=== PATIENT | female | born 2000 | race Two or more races ===

== ENCOUNTER 2021-07-17 19:09 | Inpatient (IN) | payer OTHER ==
[~2021-07-17] VITALS: Ht 167.6 cm; Wt 94.8 kg
[2021-07-17 22:05] LABS: AMPHETAMINES NEGATIVE (NEGATIVE); BARBITURATES NEGATIVE (NEGATIVE); ECSTASY (MDMA) NEGATIVE (NEGATIVE); MARIJUANA (THC) NEGATIVE (NEGATIVE); METHADONE NEGATIVE (NEGATIVE); OPIATES NEGATIVE (NEGATIVE); OXYCODONE NEGATIVE (NEGATIVE)
[2021-07-17 22:06] LABS: BILIRUBIN NEGATIVE (NEGATIVE); BLOOD NEGATIVE Ery/uL (NEGATIVE); CLARITY CLEAR (CLEAR); COLOR YELLOW (YELLOW); GLUCOSE (U) TRACE mg/dL (NORMAL); LEUKOCYTES NEGATIVE Leu/uL (NEGATIVE); NITRITE NEGATIVE (NEGATIVE); PROTEIN NEGATIVE (NEGATIVE); SPECIFIC GRAVITY 1.025 (1.001-1.030); UROBILINOGEN 0.2 mg/dL (0.2-1.0)
[2021-07-17 22:10] LABS: HCT 39.2 % (37.0-47.0); HGB 12.5 g/dl (12.5-16.0); MCH 25.5 pg (25.0-31.0); MCHC 31.9 g/dL (32.0-36.0); MPV 10.9 fL (6.0-9.5); RBC 4.9 M/uL (4.20-5.40); RDW 16.2 % (11.5-14.0); WBC 13.8 K/uL (4.0-10.5)
[2021-07-19 14:48] LABS: HCT 31.3 % (37.0-47.0); HGB 10.1 g/dl (12.5-16.0); MCHC 32.3 g/dL (32.0-36.0); MCV 80.5 fL (78.0-100.0); MPV 10.7 fL (6.0-9.5); RBC 3.89 M/uL (4.20-5.40); RDW 16.5 % (11.5-14.0); WBC 29.4 K/uL (4.0-10.5)
[2021-07-19 16:27] LABS: BASOPHIL 0.3 % (0-2); EOSINOPHIL 0 % (0-5); HCT 30.1 % (37.0-47.0); HGB 9.6 g/dl (12.5-16.0); LYMPHOCYTE 12.7 % (15-48); MCH 25.7 pg (25.0-31.0); MCHC 31.9 g/dL (32.0-36.0); MCV 80.5 fL (78.0-100.0); MONOCYTE 9.8 % (0-12); MPV 10.6 fL (6.0-9.5); NEUTROPHIL 76.3 % (41-80); NRBC 0; PLT 246 K/uL (150-400); RBC 3.74 M/uL (4.20-5.40); RDW 16.5 % (11.5-14.0); WBC 26.7 K/uL (4.0-10.5)
[2021-07-19 16:45] LABS: BUN/CREAT RATIO (CALC) 12.8 RATIO; CREATININE 0.47 mg/dL (0.51-0.95); POTASSIUM 3.9 mmol/L (3.5-5.1)
[2021-07-19 16:55] LABS: TOTAL CELL COUNT 100
[2021-07-19 16:55] LABS: LACTIC ACID 1.5 mmol/L (0.4-1.9)
[2021-07-19 16:57] LABS: LYMPHOCYTE(M) 13 % (15-48); MONOCYTE(M) 9 % (0-12); NEUTROPHILS(M) 78 % (41-80)
[2021-07-19 16:58] LABS: PLATELET ESTIMATE NORMAL; PLATELET MORPHOLOGY NORMAL
[2021-07-20 04:23] LABS: HCT 28.3 % (37.0-47.0); HGB 8.8 g/dl (12.5-16.0); MCH 25.3 pg (25.0-31.0); MCHC 31.1 g/dL (32.0-36.0); MCV 81.3 fL (78.0-100.0); MPV 10.4 fL (6.0-9.5); RBC 3.48 M/uL (4.20-5.40); RDW 16.5 % (11.5-14.0); WBC 20.7 K/uL (4.0-10.5)
[2021-07-20] MEDS ORDERED: PRENATAL FORMU1 EACH PO (12:14)
[2021-07-20] MEDS ORDERED: PERCOCET 5-3251 EACH PO (12:14)
[2021-07-20] MEDS ORDERED: COLACE100 MG PO (12:14)
[2021-07-20] MEDS ORDERED: FEOSOL325 MG PO (12:14)
[2021-07-20] MEDS ORDERED: IBUPROFEN800 M1 PO (12:14)
[2021-07-21 07:23] LABS: HCT 31.5 % (37.0-47.0); MCH 25.6 pg (25.0-31.0); MCHC 31.7 g/dL (32.0-36.0); MCV 80.6 fL (78.0-100.0); MPV 10.7 fL (6.0-9.5); RBC 3.91 M/uL (4.20-5.40); RDW 16.9 % (11.5-14.0)
== END 2021-07-21 16:58 | disposition home or self-care (01) | DRG 786 ==
LOC: FOD 19:09 → FOB 19:14 → FOD 20:56 → FOB 20:57 → FOD 20:57 → FOB 07-21 16:58
PROVIDERS: Obstetrics & Gynecology; ADMIT Specialist
PROC: 10D00Z1 Extraction of Products of Conception, Low, Open Approach (ICD-10-PCS; principal; 2021-07-19 01:30)
DX: O62.1 Secondary uterine inertia (principal); U07.1 COVID-19; O98.52 Other viral diseases complicating childbirth; D62 Acute posthemorrhagic anemia; R65.10 Systemic inflammatory response syndrome (SIRS) of non-infectious origin without acute organ dysfunction; Z3A.39 39 weeks gestation of pregnancy; Z37.0 Single live birth; O90.81 Anemia of the puerperium; K59.00 Constipation, unspecified; Z88.0 Allergy status to penicillin
CPT/HCPCS: 36415; 71045; 80048; 80170; 80305; 81003; 83605; 86850; 86900; 86901; 87040; 87088; 90686; J0456; J0595; J0692; J1580; J1885; J2370; J2405; J2590; J2916; J7050; J7120; U0002